=== PATIENT | female | born 1980 | race Caucasian/White ===

== ENCOUNTER 2016-07-31 11:55 | Day surgery (SDC) | payer OTHER ==
--- NOTE | ~2016-07-31 | OP ---
Record Of Operation [facility] [address] [place]. [address] NAME: BRIANA RAMOS : 80 STATUS : [facility]#: [id number] AGE: 35 ADM/REG DATE : 07/31/16 MR#: [id number] REPORT SERV DATE: 08/26/16 DICTATED BY: DANIEL MIX DATE: 08/22/16 REPORT STATUS : Draft TRANSCRIBED BY: MODFranklyn DATE: 08/22/16 DATE OF PROCEDURE: 07/31/2016 PREOPERATIVE DIAGNOSIS: Tarsal tunnel impingement, left arch. POSTOPERATIVE DIAGNOSIS: Tarsal tunnel impingement, left arch. PROCEDURE PERFORMED: Tarsal tunnel release. COMPLICATIONS: None. ESTIMATED BLOOD LOSS: Less than 5 mL. TOURNIQUET TIME: Approximately 90 minutes at 250 mmHg. SURGEON: Daniel Mix D.P.M. DENTIST PRIVATE PRACTICE: Ruy Burk D.P.M. ANESTHESIA: General. Supplementation of ankle bracelet, 0.5% Marcaine with epinephrine, 2% plain Xylocaine. The patient was brought to the operating room on 07/31/2016 in satisfactory condition and general anesthesia was then initiated. The left foot was prepped and draped in the usual sterile manner. The right foot was exsanguinated of blood and the ankle tourniquet was elevated to 250 mmHg. The patient had previously in the preop identified this to be the site and marking had been made along the course of the abductor and adductor hallucis muscle. Intraoperatively, an incision was made in a curvilinear fashion from inframalleolar region to medial 1/3rd of arch. The incision was deepened and sharp dissection taking care to identify and retract all vital neurovascular structures. Bleeders were identified, cut and coagulated. The patient then had the deep tissue bluntly dissected using Metzenbaum, iris scissors, and curved hemostats. Once the entire body of the abductor hallucis was identified, it was then freed up from the deltoid ligament dorsally and from the plantar fracture plantarly. This released a 4 cm long free passage under the abductor hallucis taking care to identify and then retract the tibial nerve just before its dissection into the ariel pedis, this was identified, ariel pedis was opened, freeing the compression on the tibial nerve. Long plantar nerves both medially and laterally were also freed at this time using digital dilatation of the ariel pedis. There was no signs of injury to the venous or arterial structures or the neurological bundle. The tourniquet at this point was released. The area was flushed with copious amounts of normal saline and all that was done was a closure of the skin using nylon 2-0 horizontal mattress sutures. The foot pinked up immediately. The patient had a Betadine Telfa dry sterile compression dressing applied. The patient tolerated the procedure well and went to the recovery room in a satisfactory condition. Record Of Operation [place] [id number] [facility] [place]. [address] NAME: BRIANA RAMOS : 80 STATUS : [facility]#: [id number] AGE: 35 ADM/REG DATE : 07/31/16 MR#: [id number] REPORT SERV DATE: 08/26/16 DICTATED BY: DANIEL MIX DATE: 08/22/16 REPORT STATUS : Draft TRANSCRIBED BY: EDISON DATE: 08/22/16 DB/EDISON Daniel Mix D.P.M. / [id number] CC: Pavithra Orozco M.D.
[~2016-07-31 11:55] MED LIST: *DENIES
== END 2016-07-31 21:17 | disposition home or self-care (01) ==
LOC: SDC 11:55
PROC: 01NG0ZZ Release Tibial Nerve, Open Approach (ICD-10-PCS; principal; 2016-07-31 13:45)
DX: G57.52 Tarsal tunnel syndrome, left lower limb (principal); K21.9 Gastro-esophageal reflux disease without esophagitis; E66.9 Obesity, unspecified; Z88.1 Allergy status to other antibiotic agents; Z88.8 Allergy status to other drugs, medicaments and biological substances; Z90.710 Acquired absence of both cervix and uterus
CPT/HCPCS: A9270-GY; J0690; J1030; J1170; J1885; J2250; J2405; J3010; J3370